=== PATIENT | male | born 2000 | race Caucasian/White ===

== ENCOUNTER 2020-10-30 17:10 | Observation (INO) | payer OTHER ==
[~2020-10-30] VITALS: Ht 172 cm; Wt 100.1 kg
[2020-10-30] MEDS ORDERED: NS IV 1000 ML 1,000 ML IV SCH (17:30)
[2020-10-30] MEDS ORDERED: KETOROLAC 30 MG/ML VIAL IVP ONE (17:30)
[2020-10-30] MEDS ORDERED: ONDANSETRON 4 MG/2 ML (SDV) Z0FRAN IVP ONE (17:30)
--- NOTE | 2020-10-30 17:33 | ED Abdominal Pain ---
General Stated Complaint: ABD PAIN Source of Information: Patient Exam Limitations: No Limitations History of Present Illness Date Seen by Provider: October 30, 2020 Time Seen by Provider: 17:32 Initial Comments To ER with about 24 hours of right lower quadrant abdominal pain. Nausea but no vomiting. No bowel changes. Timing/Duration: 24 Hours Severity/Quality: Moderate, Aching Location: RUQ, RLQ Radiation: No Radiation Activities at Onset: None Associated Symptoms: Denies Symptoms Allergies and Home Medications Allergies Coded Allergies: No Known Drug Allergies (Unverified , 10/30/20) Patient Home Medication List Home Medication List Reviewed: Yes Review of Systems Review of Systems Constitutional: see HPI; No chills, No fever EENTM: No Symptoms Reported Respiratory: No Symptoms Reported Cardiovascular: No Symptoms Reported Gastrointestinal: See HPI, Abdominal Pain; Denies Constipated, Denies Diarrhea; Nausea Genitourinary: No Symptoms Reported Musculoskeletal: no symptoms reported Psychiatric/Neurological: No Symptoms Reported Endocrine: No Symptoms Reported Hematologic/Lymphatic: No Symptoms Reported Physical Exam Vital Signs Vital Signs - First Documented 10/30/20 17:20 Temp 36.7 Pulse 105 Resp 16 B/P (MAP) 174/94 (120) Pulse Ox 97 O2 Delivery Room Air Capillary Refill : Height/Weight/BMI Height: '" Weight: lbs. oz. kg; BMI Method: General Appearance: WD/WN, no apparent distress HEENT: PERRL/EOMI, normal ENT inspection Neck: non-tender, full range of motion Respiratory: no respiratory distress, no accessory muscle use Cardiovascular: no murmur, tachycardia Gastrointestinal: normal bowel sounds, soft, tenderness Extremities: normal range of motion, non-tender Neurologic/Psychiatric: alert, normal mood/affect, oriented x 3 Skin: normal color, warm/dry Progress/Results/Core Measures Results/Orders Lab Results Laboratory Tests Test 10/30/20 17:33 Range/Units White Blood Count 13.7 H 4.3-11.0 10^3/uL Red Blood Count 5.39 4.30-5.52 10^6/uL Hemoglobin 16.0 13.3-17.7 g/dL Hematocrit 46 40-54 % Mean Corpuscular Volume 86 80-99 fL Mean Corpuscular Hemoglobin 30 25-34 pg Mean Corpuscular Hemoglobin Concent 35 32-36 g/dL Red Cell Distribution Width 12.0 10.0-14.5 % Platelet Count 298 130-400 10^3/uL Mean Platelet Volume 8.9 L 9.0-12.2 fL Immature Granulocyte % (Auto) 0 % Neutrophils (%) (Auto) 83 H 42-75 % Lymphocytes (%) (Auto) 9 L 12-44 % Monocytes (%) (Auto) 7 0-12 % Eosinophils (%) (Auto) 0 0-10 % Basophils (%) (Auto) 0 0-10 % Neutrophils # (Auto) 11.3 H 1.8-7.8 10^3/uL Lymphocytes # (Auto) 1.3 1.0-4.0 10^3/uL Monocytes # (Auto) 1.0 0.0-1.0 10^3/uL Eosinophils # (Auto) 0.0 0.0-0.3 10^3/uL Basophils # (Auto) 0.0 0.0-0.1 10^3/uL Immature Granulocyte # (Auto) 0.0 0.0-0.1 10^3/uL Urine Color YELLOW Urine Clarity CLEAR Urine pH 7.0 5-9 Urine Specific [place] 1.025 H 1.016-1.022 Urine Protein NEGATIVE NEGATIVE Urine Glucose (UA) NEGATIVE NEGATIVE Urine Ketones NEGATIVE NEGATIVE Urine Nitrite NEGATIVE NEGATIVE Urine Bilirubin NEGATIVE NEGATIVE Urine Urobilinogen 0.2 < = 1.0 MG/DL Urine Leukocyte Esterase NEGATIVE NEGATIVE Urine RBC (Auto) NEGATIVE NEGATIVE Urine RBC NONE /HPF Urine WBC NONE /HPF Urine Squamous Epithelial Cells NONE /HPF Urine Crystals NONE /LPF Urine Bacteria NEGATIVE /HPF Urine Casts NONE /LPF Urine Mucus NEGATIVE /LPF Urine Culture Indicated NO Sodium Level 139 135-145 MMOL/L Potassium Level 4.0 3.6-5.0 MMOL/L Chloride Level 100 98-107 MMOL/L Carbon Dioxide Level 29 21-32 MMOL/L Anion Gap 10 5-14 MMOL/L Blood Urea Nitrogen 10 7-18 MG/DL Creatinine 1.30 0.60-1.30 MG/DL Estimat Glomerular Filtration Rate > 60 BUN/Creatinine Ratio 8 Glucose Level 103 70-105 MG/DL Calcium Level 10.1 8.5-10.1 MG/DL Corrected Calcium 8.5-10.1 MG/DL Total Bilirubin 0.7 0.1-1.0 MG/DL Aspartate Amino Transf (AST/SGOT) 32 5-34 U/L Alanine Aminotransferase (ALT/SGPT) 47 0-55 U/L Alkaline Phosphatase 64 40-136 U/L C-Reactive Protein High Sensitivity 4.07 H 0.00-0.50 MG/DL Total Protein 8.5 H 6.4-8.2 GM/DL Albumin 5.0 H 3.2-4.5 GM/DL Lipase 27 8-78 U/L My Orders Orders - ARVIND PUTNAM DIGITAL SALES REPRESENTATIVE Cbc With Automated Diff (10/30/20 17:30) Hs C Reactive Protein (10/30/20 17:30) Comprehensive Metabolic Panel (10/30/20 17:30) Lipase (10/30/20 17:30) Ua Culture If Indicated (10/30/20 17:30) Ed Iv/Invasive Line Start (10/30/20 17:30) Ketorolac Injection (Toradol Injection) (10/30/20 17:30) Ondansetron Injection (Zofran Injectio (10/30/20 17:30) Ns Iv 1000 Ml (Sodium Chloride 0.9%) (10/30/20 17:30) Ct Abd/Pelv W (Appendicitis) (10/30/20 18:02) Iohexol Injection (Omnipaque 350 Mg/Ml 1 (10/30/20 18:30) Received Contrast (Hold Metformin- Contr (10/30/20 18:30) Ns (Ivpb) (Sodium Chloride 0.9% Ivpb Bag (10/30/20 18:30) Medications Given in ED Current Medications Medications Dose Ordered Sig/Dalia Route Start Time Stop Time Status Last Admin Dose Admin Ketorolac Tromethamine 15 mg ONCE ONCE IVP 10/30/20 17:30 10/30/20 17:33 DC 10/30/20 17:46 15 MG Ondansetron HCl 4 mg ONCE ONCE IVP 10/30/20 17:30 10/30/20 17:33 DC 10/30/20 17:45 4 MG Vital Signs/I&O 10/30/20 17:20 Temp 36.7 Pulse 105 Resp 16 B/P (MAP) 174/94 (120) Pulse Ox 97 O2 Delivery Room Air Departure Impression Primary Impression: Appendicitis Disposition: 01 HOME, SELF-CARE Condition: Stable Admissions Decision to Admit Reason: Admit from ER (General) Decision to Admit/Date: October 30, 2020 Time/Decision to Admit Time: 18:51 Departure-Patient Inst. Decision time for Depature: 18:51 Referrals: NO,LOCAL PHYSICIAN (PCP/Family) Primary Care Physician ARVIND PUTNAM APRN October 30, 2020 17:33
[2020-10-30 17:42] LABS: BASOPHILS % (AUTO) 0 % (0-10); EOSINOPHILS % (AUTO) 0 % (0-10); HEMATOCRIT 46 % (40-54); LYMPHOCYTES # (AUTO) 1.3 10^3/uL (1.0-4.0); LYMPHOCYTES % (AUTO) 9 % (12-44); MEAN CORPUSCULAR HEMOGLOBIN 30 pg (25-34); MEAN CORPUSCULAR HGB CONC 35 g/dL (32-36); MEAN CORPUSCULAR VOLUME 86 fL (80-99); MEAN PLATELET VOLUME 8.9 fL (9.0-12.2); MONOCYTES % (AUTO) 7 % (0-12); NEUTROPHILS # (AUTO) 11.3 10^3/uL (1.8-7.8); NEUTROPHILS % (AUTO) 83 % (42-75); PLATELET COUNT 298 10^3/uL (130-400); WHITE BLOOD COUNT 13.7 10^3/uL (4.3-11.0)
[2020-10-30 17:50] LABS: CHLORIDE 100 MMOL/L (98-107); SODIUM 139 MMOL/L (135-145)
[2020-10-30 17:51] LABS: CALCIUM 10.1 MG/DL (8.5-10.1)
[2020-10-30 17:53] LABS: BILIRUBIN,URINE NEGATIVE (NEGATIVE); CLARITY,URINE CLEAR; COLOR,URINE YELLOW; GLUCOSE 103 MG/DL (70-105); GLUCOSE, URINE (UA) NEGATIVE (NEGATIVE); KETONES,URINE NEGATIVE (NEGATIVE); LEUKOCYTE ESTERASE ,URINE NEGATIVE (NEGATIVE); NITRITE,URINE NEGATIVE (NEGATIVE); PROTEIN,URINE NEGATIVE (NEGATIVE); TOTAL PROTEIN 8.5 GM/DL (6.4-8.2)
[2020-10-30 17:54] LABS: BILIRUBIN,TOTAL 0.7 MG/DL (0.1-1.0); CARBON DIOXIDE 29 MMOL/L (21-32)
[2020-10-30 17:56] LABS: ALKALINE PHOSPHATASE 64 U/L (40-136); GFR ESTIMATED > 60
[2020-10-30 17:57] LABS: BUN/CREATININE RATIO 8
[2020-10-30 17:59] LABS: ALANINE AMINOTRANSFERASE 47 U/L (0-55)
[2020-10-30 18:00] LABS: LIPASE 27 U/L (8-78)
[2020-10-30 18:07] LABS: BACTERIA,URINE NEGATIVE /HPF
[2020-10-30] MEDS ORDERED: HOLD METFORMIN - RECEIVED CONTRAST 20 ML VIAL IV SCH (18:30)
[2020-10-30] MEDS ORDERED: IOHEXOL 350 MG/ML 100 ML (OMNIPAQUE 350) VIAL IV ONE (18:30)
[2020-10-30] MEDS ORDERED: NS 100 ML (IVPB) BAG IV ONE (18:30)
--- NOTE | 2020-10-30 19:15 | Diagnostic Imaging Report ---
CLINICAL INDICATION: Patient with right lower quadrant pain with nausea x24 hours. Patient with right lower quadrant pain and leukocytosis. EXAM: Axial CT scan of the abdomen and pelvis performed with 100 mL of Omnipaque 350 IV contrast. Sagittal and coronal reformatted images were created. Auto Exposure Controls were utilized during the CT exam to meet ALARA standards for radiation dose reduction. COMPARISON: None. FINDINGS: Visualized lung bases are clear. Bones show no significant abnormality. The liver, spleen, pancreas, gallbladder, and adrenal glands are unremarkable. There is a roughly 6 mm circumscribed cyst involving the midportion of the left kidney. There is enlargement of wall thickening involving the appendix measuring 13 mm in greatest width. There is a small to moderate amount of fat stranding about the right pancreas which extends near the cecum and along the medial upper right pelvic wall region. There is no evidence of intra-abdominal free air or abscess. There is minimal free fluid in the pelvis. The colon, small bowel, and stomach are unremarkable. The extraabdominal and extra-pelvis soft tissue structures are unremarkable. IMPRESSION: There is acute appendicitis with no evidence of rupture or abscess. Results of this report were discussed with Dr. Bey via the telephone on 10/30/2020 at 1908 hours. Dictated by: Dictated on workstation # [id number]
--- NOTE | 2020-10-30 19:28 | Progress Note-Pre Operative ---
Pre-Operative Progress Note H&P Reviewed The H&P was reviewed, patient examined and no changes noted. Date Seen by Provider: October 30, 2020 Time Seen by Provider: 19:30 Date H&P Reviewed: October 30, 2020 Time H&P Reviewed: 19:30 Pre-Operative Diagnosis: acute appendicitis JAIME MATOS MD October 30, 2020 19:28
--- NOTE | 2020-10-30 19:47 | HISTORY AND PHYSICAL ---
DATE OF SERVICE: HISTORY OF PRESENT ILLNESS: The patient is a 20-year-old male who presented to the Emergency Department with a 24-hour history of right lower quadrant abdominal pain. He states that this came on suddenly and persisted. He does not report any nausea, no vomiting as well as no change in bowel habits. He also does not report any fever, no chills. He also does not report having these symptoms before in the past as well. A CT scan was performed, which did show an inflamed appendix; however, no signs of perforation. PAST MEDICAL HISTORY: None. PAST SURGICAL HISTORY: None. ALLERGIES: No known drug allergies. MEDICATIONS: None. SOCIAL HISTORY: Negative smoke, social alcohol. VITAL SIGNS: Temperature 36.7, blood pressure 174/94, pulse 105, respirations 16, pulse ox 97% on room air. REVIEW OF SYSTEMS: A well-nourished male, currently guarded secondary to the abdominal pain. He is not experiencing any shortness of breath, no difficulty breathing. No chest pain, palpitations, diaphoresis. No nausea, vomiting, no diarrhea or constipation. No known red blood per rectum, no dark tarry stools. No fever, chills, no recent inadvertent weight loss. All other review of systems negative. PHYSICAL EXAMINATION: CHEST: Clear. Good breath sounds bilaterally. HEART: Regular, no murmurs. EXTREMITIES: No lower extremity edema, negative Homans sign. HEENT: No scleral icterus. NECK: No cervical lymphadenopathy. ABDOMEN: Soft, nondistended. There is pain at McBurney's point with voluntary guarding, no rebound. No hernias. SKIN: Warm, dry. LABORATORY DATA: WBC 13.7, hemoglobin 16.0, hematocrit 46, platelets 298, BUN 10, creatinine 1.30. ASSESSMENT AND PLAN: A 20-year-old male with a noncomplicated appendicitis. The natural history of appendicitis was explained to the patient including the risks and benefits of surgery and he is in full understanding of this and would like to proceed with a diagnostic laparoscopy as well as laparoscopic appendectomy, which we will schedule. Job ID: [id number] DocumentID: [id number] Dictated Date: 10/30/2020 19:27:29 Home Care Associate Date: 10/30/2020 19:46:14 Dictated By: JAIME MATOS MD
[2020-10-30] MEDS ORDERED: LACTATED RINGERS 1,000 ML IV ONE (20:33)
[2020-10-30] MEDS: LACTATED RINGERS 1,000 ML IV SCH (20:33)
[2020-10-30 20:43] VITALS: BP 134/85
[2020-10-30] MEDS ORDERED: ONDANSETRON 4 MG/2 ML (SDV) Z0FRAN IVP PRN (21:30)
[2020-10-30] MEDS ORDERED: fentaNYL INJ 100 MCG/2 ML AMP IVP PRN (21:30)
[2020-10-30] MEDS: metroNIDAZOLE 500 MG/100 ML IVPB (PRE-MIX) IV SCH (21:52)
[2020-10-30] MEDS ORDERED: cefTRIAXone 1,000 MG/SWFI 10 ML IV PUSH IV SCH ×2 (22:00)
[2020-10-30 23:19] VITALS: BP 121/74
[2020-10-31] VITALS (9 sets, daily range): BP systolic 121–143; BP diastolic 50–83
[2020-10-31] MEDS: LACTATED RINGERS 1,000 ML IV SCH (05:43)
[2020-10-31] MEDS: metroNIDAZOLE 500 MG/100 ML IVPB (PRE-MIX) IV SCH (09:00)
[2020-10-31] MEDS ORDERED: LIDOCAINE/EPI 1%-1:100,000 (XYLOCAINE) 20ML ONE (09:27)
[2020-10-31] MEDS ORDERED: MIDAZOLAM 2 MG/2 ML (VERSED) VIAL ONE (09:32)
[2020-10-31] MEDS ORDERED: fentaNYL INJ 100 MCG/2 ML AMP ONE ×2 (09:32→10:54)
--- NOTE | 2020-10-31 09:47 | Progress Note ---
Standard Progress Note Progress Notes/Assess & Plan Date Seen by a Provider: October 31, 2020 Time Seen by a Provider: 09:10 Progress/Assessment & Plan Patient seen with Dr. Martínez. Patient denies any pain at this time. No fever/chills. Questions answered. Surgery and after care explained to patient. Will proceed with laparoscopic appendectomy. Final Diagnosis Acute Appendicitis Diagnosis/Problems Diagnosis/Problems (1) Appendicitis Status: Acute Qualifiers: Qualified Codes: K35.80 - Unspecified acute appendicitis SRINIVAS ZAVALA MANAGER CREATIVE SERVICES October 31, 2020 09:47
[2020-10-31] MEDS: LACTATED RINGERS 1,000 ML IV PRN ×2 (09:58→10:45)
[2020-10-31] MEDS ORDERED: ceFAZolin 2 GM IV Premixed 50 ML ONE (10:10)
[2020-10-31] MEDS ORDERED: MEPERIDINE (DEMEROL) INJ 50 MG/ML IVP ONE (10:15)
[2020-10-31] MEDS ORDERED: ONDANSETRON 4 MG/2 ML (SDV) Z0FRAN IVP PRN (10:15)
[2020-10-31] MEDS ORDERED: HYDROmorphone 2 MG/ML VIAL (DILAUDID) IV ONE (10:15)
[2020-10-31] MEDS ORDERED: morphine INJ 10 MG/ML 1ML (SYR OR VIAL) IVP ONE (10:15)
[2020-10-31] MEDS ORDERED: HYDR-3817 PO ×2 (10:23)
--- NOTE | 2020-10-31 10:26 | Discharge Inst-Surgical ---
D/C Lap Instructions-KIDO Reconcile Patient Problems Problems Reviewed?: Yes New, Converted, or Re-Newed RX: RX on Chart Follow Up Appt with primary care physician as needed due to patient does not live close to here Call our office with any questions or concerns at [phone] Activity as tolerated No driving for 24 hours No driving while on pain medications Incentive Spirometry use every 2 hours while awake Regular Diet Symptoms to Report: Fever over 101 degree F, Nausea/Vomiting Infection Signs and Symptoms to report: Increased redness, Foul odor of wound, Increased drainage Bathing instructions: May shower Operative Area Clean/Dry; Keep incision clean/dry If any problems/questions: Contact your physician or go to Emergency Room SRINIVAS ZAVALA APRN October 31, 2020 10:26
[2020-10-31] MEDS ORDERED: proPOfol 200 MG/20 ML (DIPRIVAN) VIAL IV ONE ×2 (10:52→10:53)
[2020-10-31] MEDS ORDERED: ONDANSETRON 4 MG/2 ML (SDV) Z0FRAN ONE (10:52)
[2020-10-31] MEDS ORDERED: LIDOCAINE PF 2% 5 ML (XYLOCAINE) VIAL ONE (10:52)
[2020-10-31] MEDS ORDERED: SUCCINYLCHOLINE INJ 100 MG/5 ML SYR/VIAL ONE (10:52)
[2020-10-31] MEDS ORDERED: ROCURONIUM 10 MG/ML 5 ML SYRINGE IV ONE (10:52)
[2020-10-31] MEDS ORDERED: GLYCOPYRROLATE 0.2 MG/ML (ROBINUL) 2 ML VIAL ONE (10:53)
[2020-10-31] MEDS ORDERED: SEVOFLURANE (ULTANE) 15 ML INHAL SOLN ONE ×2 (10:53→10:59)
[2020-10-31] MEDS ORDERED: NEOSTIGMINE 3 MG/3 ML VIAL ONE (10:53)
--- NOTE | 2020-10-31 11:03 | Progress Note-Post Operative ---
Post-Operative Progess Note Surgeon (s)/Mix Crusher Operator (s) Surgeon JAIME MATOS MD Mix Crusher Operator: mirta lindsey WATERSHED COORDINATOR Pre-Operative Diagnosis acute appendicitis Post-Operative Diagnosis same Procedure & Operative Findings Date of Procedure 10/31/20 Procedure Performed/Findings laparoscopic appendectomy Anesthesia Type get Estimated Blood Loss Estimated blood loss (mL): minimal Specimens/Packing Specimens Removed appendix JAIME MATOS MD October 31, 2020 11:03
--- NOTE | 2020-10-31 16:30 | OPERATIVE REPORT ---
DATE OF SERVICE: 10/31/2020 PREOPERATIVE DIAGNOSIS: Acute appendicitis. POSTOPERATIVE DIAGNOSIS: Acute appendicitis. PROCEDURE: Laparoscopic appendectomy. SURGEON: Jaime Matos MD. MEDIA STRATEGIST: Zaid Araya APRN. ANESTHESIA: General endotracheal. ESTIMATED BLOOD LOSS: Minimal. FINDINGS: Inflamed appendix, no perforation. DISPOSITION: The patient tolerated the procedure well. INDICATIONS: The patient is a 20-year-old male who presented to the Emergency Department with a 24-hour history of right lower abdominal quadrant pain that came on all of a sudden and persisted. He did not report any nausea, no vomiting as well as no change in bowel habits. He also did not report any fever, no chills. A CT scan was performed, which showed an inflamed appendix consistent with appendicitis; however, no signs of perforation or any complications. DESCRIPTION OF PROCEDURE: The patient was brought to the operating room, laid supine on the table. After adequate IV pain and sedative medications and general endotracheal intubation, the abdomen was prepped and draped in standard surgical fashion. A 0.5% Marcaine with epinephrine was then used to anesthetize overlying skin in the left upper abdominal quadrant and a transverse skin incision made using a 15 blade. An #0 silk suture was applied to the medial aspect incision for retraction and a Veress needle inserted with a low opening pressure of #0 mmHg. The abdomen was insufflated to 15 mmHg pressure. The Veress needle removed and a 5 mm XL trocar placed followed by a 5 mm 45-degree angle laparoscope visualizing the peritoneal cavity. A 4-quadrant abdominal exploration was performed. There was an inflamed appendix, no perforation, remainder of the colon and small bowel appeared normal. Under direct visualization, we then proceeded to place a supraumbilical 10 mm port after the skin and peritoneal lining were anesthetized using 0.5% Marcaine with epinephrine and a transverse skin incision made using a 15 blade. In a similar fashion, a suprapubic 5 mm port was placed. The patient was then placed in a Trendelenburg position as well as plane right side up, left side down. We then created a window between the mesoappendix and the base of the mesoappendix using a [place] dissector. The mesoappendix was then stapled and transected with a MARY 45 mm stapler with a 2.0 mm thickness load. The appendix was then stapled and transected at the cecal base with the same stapler with a 2.5 mm thickness reload with visualization of good hemostasis. The appendix was then removed through the 10 mm port site using an EndoCatch bag. The 10 mm port site fascia and peritoneum were then closed under direct visualization using a Prince-Izaiah device and #0 Vicryl suture. The abdomen was desufflated and remaining ports removed. All skin incisions were closed using 4-0 Monocryl running subcuticular sutures. Wounds were then cleaned and covered with Dermabond. The patient tolerated the procedure well. We will start IV normal pain medication as well as a clear liquid diet. Once he is tolerating clears, has good pain control with oral pain medications and ambulating well, we will discharge him home. Job ID: [id number] DocumentID: [id number] Dictated Date: 10/31/2020 11:11:50 Assistant Professor Date: 10/31/2020 16:29:32 Dictated By: JAIME MATOS MD
[2020-11-01] MEDS ORDERED: TMSL.4C PO (03:31)
[2020-11-01] MEDS ORDERED: CEPH500T PO (03:31)
== END 2020-10-31 14:16 | disposition home or self-care (01) ==
LOC: ER 17:12 → 4TH 19:19 → INTOOBSV 19:19
PROVIDERS: ADMIT Surgery; ATTEND Surgery
DX: K35.80 Unspecified acute appendicitis (principal); J45.990 Exercise induced bronchospasm; K21.9 Gastro-esophageal reflux disease without esophagitis; E66.9 Obesity, unspecified; Z68.33 Body mass index [BMI] 33.0-33.9, adult; Z20.822 Contact with and (suspected) exposure to COVID-19
CPT/HCPCS: 44970; 74177; 80053; 81000; 83690; 85025; 86141; 87081; 99284; U0002; 36415; 87635

== ENCOUNTER 2020-11-01 01:47 | Emergency (ER) | payer OTHER ==
[~2020-11-01] VITALS: Ht 172.7 cm; Wt 99.7 kg
[~2020-11-01 01:47] MED LIST: HYDR-3817 PO
[2020-11-01] MEDS ORDERED: LIDOCAINE UROJET 2% GEL 10 ML PKG ONE (02:17)
[2020-11-01 02:51] LABS: BILIRUBIN,URINE NEGATIVE (NEGATIVE); CLARITY,URINE CLEAR; COLOR,URINE YELLOW; GLUCOSE, URINE (UA) 1+ (NEGATIVE); KETONES,URINE NEGATIVE (NEGATIVE); LEUKOCYTE ESTERASE ,URINE NEGATIVE (NEGATIVE); NITRITE,URINE NEGATIVE (NEGATIVE); PROTEIN,URINE NEGATIVE (NEGATIVE)
[2020-11-01 02:59] LABS: BACTERIA,URINE NEGATIVE /HPF; WBC,URINE 0-2 /HPF
[2020-11-01] MEDS ORDERED: TAMSULOSIN 0.4 MG (FLOMAX) CAP PO STA (03:22)
--- NOTE | 2020-11-01 03:29 | ED GU-Male ---
General Chief Complaint: - Urinary Stated Complaint: POST OP PAINFUL URINATION Source: patient Exam Limitations: no limitations History of Present Illness Date Seen by Provider: November 01, 2020 Time Seen by Provider: 02:27 Initial Comments Patient presents ER by private conveyance with his significant other chief complaint that earlier in the day on Monday he had a appendectomy done by Dr. Martínez was passing urine but having some burning in the urethra. He has not passed gas or bowel movements yet. He was sent home and up until recently was able to pass urine. He says he is having quite a bit of pain and pressure. Nursing staff did a bedside bladder scan revealing over 400 cc of urine. Sumner catheter was placed. Patient does not have a history of urethral discharge, dysuria or other urinary symptoms. Allergies and Home Medications Allergies Coded Allergies: No Known Drug Allergies (Unverified , 10/30/20) Home Medications Cephalexin 500 Mg Tablet, 500 MG PO BID Prescribed by: MICHAEL WHYTE on 11/01/20 0331 Hydrocodone/Acetaminophen 1 Each Tablet, 1 EACH PO Q4H PRN for PAIN-BREAKTHROUGH Prescribed by: SRINIVAS ZAVALA on 10/31/20 1023 Tamsulosin HCl 0.4 Mg Cap, 0.4 MG PO HS Prescribed by: MICHAEL WHYTE on 11/01/20 0331 Patient Home Medication List Home Medication List Reviewed: Yes Review of Systems Review of Systems Constitutional: No chills, No fever EENTM: No ear discharge, No ear pain Respiratory: No cough, No short of breath Cardiovascular: No chest pain, No palpitations Gastrointestinal: No abdominal pain, No nausea, No vomiting Genitourinary: denies discharge, denies dysuria Musculoskeletal: No back pain, No joint pain Past [id number] Hx Patient Social History Alcohol Use: Denies Use Smoking Status: Never a Smoker Recent Hopitalizations: No Seasonal Allergies Seasonal Allergies: No Past Medical History Surgeries: No Respiratory: Yes Asthma Currently Using CPAP: No Currently Using BIPAP: No Cardiac: No Neurological: No Genitourinary: No Gastrointestinal: No Musculoskeletal: No Endocrine: No HEENT: No Cancer: No Psychosocial: No Integumentary: No Physical Exam Vital Signs Capillary Refill : Height, Weight, BMI Height: '" Weight: lbs. oz. kg; 33.83 BMI Method: General Appearance: WD/WN, mild distress HEENT: PERRL/EOMI, pharynx normal Neck: full range of motion, normal inspection Cardiovascular: normal peripheral pulses, regular rate, rhythm, no edema Respiratory: lungs clear, normal breath sounds, no respiratory distress, no accessory muscle use Gastrointestinal: soft, tenderness (Around the clean dry intact surgical wounds) Neurologic/Psychiatric: alert, normal mood/affect Progress/Results/Core Measures Suspected Sepsis SIRS Temperature: Pulse: Respiratory Rate: Blood Pressure / Mean: Results/Orders Lab Results Laboratory Tests Test 11/01/20 02:45 Range/Units Urine Color YELLOW Urine Clarity CLEAR Urine pH 7.0 5-9 Urine Specific [place] 1.020 1.016-1.022 Urine Protein NEGATIVE NEGATIVE Urine Glucose (UA) 1+ H NEGATIVE Urine Ketones NEGATIVE NEGATIVE Urine Nitrite NEGATIVE NEGATIVE Urine Bilirubin NEGATIVE NEGATIVE Urine Urobilinogen 0.2 < = 1.0 MG/DL Urine Leukocyte Esterase NEGATIVE NEGATIVE Urine RBC (Auto) NEGATIVE NEGATIVE Urine RBC NONE /HPF Urine WBC 0-2 /HPF Urine Squamous Epithelial Cells NONE /HPF Urine Renal Epithelial Cells NONE /HPF Urine Crystals NONE /LPF Urine Bacteria NEGATIVE /HPF Urine Casts NONE /LPF Urine Mucus NEGATIVE /LPF Urine Culture Indicated NO My Orders Orders - MICHAEL WHYTE Ua Culture If Indicated (11/01/20 02:12) Lidocaine 2% (Urojet) (Xylocaine Urojet) (11/01/20 02:17) Catheter(Urinary) Insert & Ass 03,15 (11/01/20 02:33) Urine Culture (11/01/20 03:22) Tamsulosin Capsule (Flomax Capsule) (11/01/20 03:22) Medications Given in ED Current Medications Medications Dose Ordered Sig/Dalia Route Start Time Stop Time Status Last Admin Dose Admin Lidocaine HCl 10 ml STK-MED ONCE .ROUTE 11/01/20 02:17 11/01/20 02:27 DC 11/01/20 02:32 10 ML Vital Signs/I&O Capillary Refill : Progress Note : Time: 03:25 Progress Note Sumner catheter has decompressed his bladder. Put him on some Flomax, Keflex and follow-up outpatient with Dr. Garcia. Departure Impression Primary Impression: Postoperative urinary retention Disposition: 01 HOME, SELF-CARE Condition: Stable Departure-Patient Inst. Decision time for Depature: 03:26 Referrals: JAIME MARTÍNEZ MD NO,LOCAL PHYSICIAN (PCP) Primary Care Physician RAFAEL GARCIA MD Patient Instructions: Urinary Retention (DC), How to Care for Your Sumenr Catheter, Male Add. Discharge Instructions: Keep the skin clean with regular soap and water only. Monday morning call Dr. Garcia, urologist and request follow-up appointment. Flomax 1 capsule every night until directed otherwise by the urologist. Zofran 1 tablet every 6 hours under the tongue as necessary for nausea or vomiting. Walk around the house frequently and chew gum as this will help waken your bowels sooner. Keep your follow-up appointment with the surgeon. Return to the ER promptly if you are having intractable pain nausea or other worrisome symptoms. All discharge instructions reviewed with patient and/or family. Voiced understanding. Scripts Cephalexin (Cephalexin) 500 Mg Tablet 500 MG PO BID for 7 Days, #14 TAB 0 Refills Prov: MICHAEL WHYTE 11/01/20 Tamsulosin HCl (Flomax) 0.4 Mg Cap 0.4 MG PO HS for 14 Days, #14 CAP 0 Refills Prov: MICHAEL WHYTE 11/01/20 Copy Copies To 1: JAIME MARTÍNEZ MD; RAFAEL GARCIA MD, TITUS J November 01, 2020 03:29
[2020-11-01] MEDS ORDERED: TMSL.4C PO (03:31)
[2020-11-01] MEDS ORDERED: CEPH500T PO (03:31)
[2020-11-01 03:56] VITALS: BP 146/78
== END 2020-11-01 03:56 | disposition home or self-care (01) ==
LOC: EDUNIT# 01:47 → ER 01:50
DX: R33.8 Other retention of urine (principal); J45.909 Unspecified asthma, uncomplicated
CPT/HCPCS: 81000; 87088; 99283

== ENCOUNTER 2021-11-04 22:19 | Emergency (ER) | payer OTHER ==
[~2021-11-04] VITALS: Ht 170.1 cm; Wt 100.0 kg
[~2021-11-04 22:19] MED LIST changes: +CEPH500T PO; +TMSL.4C PO
--- NOTE | 2021-11-04 22:56 | ED Chest Pain ---
General Chief Complaint: Chest Wall Stated Complaint: SOB AND RIB AND BACK PAIN Nursing Triage Note: PT ARRIVAL TO ER WITH COMPLAINT OF RIGHT SIDED RIB PAIN AND SOA. PT STATES THAT IT STARTED THIS AM. PT STATES THAT IT HURTS TO TAKE DEEP BREATH. PT STATES THAT HE WAS SEEN IN URGENT CARE THIS AFTERNOON AND THEY BELIEVED THE LINING OF HIS LUNGS WERE INFECTED PER PATIENT AND HE WAS STARTED ON Z-PACK. PT STATES THAT SINCE TAKING THE MEDICATION ITS ONLY GOTTEN WORSE. PAIN RATED AT A 7/10 AND DESCRIBED SHARP. Source: patient Exam Limitations: no limitations History of Present Illness Date Seen by Provider: November 04, 2021 Time Seen by Provider: 22:42 Initial Comments Patient is a healthy 21-year-old male who presents to the emergency department today with a chief complaint of right-sided lower rib and back pain with painful deep breathing. He states he woke up with the symptoms this morning suddenly. He is never had anything like this. He does endorse a little hemoptysis throughout the morning until about 3:00 in the afternoon. He states he feels a little short of breath and specifically states it is uncomfortable to take deep breaths. He denies fevers, chills, productive cough. No sinus infections, sore throat. He occasionally vapes and smokes but takes no prescribed daily medications. No family history of early coronary artery disease. No recent prolonged immobility/surgery/travel. No history of pulmonary embolism or DVTs in himself or family. Patient states he went to urgent care in [place] today, had a chest x-ray that he states was relayed to him as "normal". They gave him a Z-Julio which she started this evening. He did take 2 ibuprofen earlier in the day without any relief of symptoms. He states he was trying to lay down to sleep tonight and laying down made his discomfort worse. Patient states that he did a lot of work outside, heavy exertion and yesterday. 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 Did a lot of lawnmowing yesterday. He states he was exposed to quite a bit of smoke. All other review of systems reviewed and negative except as stated. Timing/Duration: 1 day Severity/Quality: moderate, sharp Location: other (right lower ribs and back) Activities at Onset: none Prior CP/Workup: no prior chest pain, no prior cardiac workup ASA po PRESS HELPER: No NTG SL PRESS HELPER: No Associated Symptoms: shortness of breath Allergies and Home Medications Allergies Coded Allergies: No Known Drug Allergies (Unverified , 10/30/20) Patient Home Medication List Home Medication List Reviewed: Yes Cephalexin (Cephalexin) 500 Mg Tablet, 500 MG PO BID Prescribed by: MICHAEL WHYTE on 11/01/20 0331 Hydrocodone/Acetaminophen (Hydrocodone-Acetamin 7.5-325) 1 Each Tablet, 1 EACH PO Q4H PRN for PAIN-BREAKTHROUGH Prescribed by: SRINIVAS ZAVALA on 10/31/20 1023 Tamsulosin HCl (Flomax) 0.4 Mg Cap, 0.4 MG PO HS Prescribed by: MICHAEL WHYTE on 11/01/20 0331 Review of Systems Review of Systems Constitutional: see HPI EENTM: No Symptoms Reported Respiratory: SOA at Rest, Other (pleuritic type chest pain; hemoptysis) Cardiovascular: Chest Pain Gastrointestinal: No Symptoms Reported Genitourinary: No Symptoms Reported Skin: no symptoms reported Psychiatric/Neurological: No Symptoms Reported All Other Systems Reviewed Negative Unless Noted: Yes Past Wewbblk-Bhupdc-Azlvhp Hx Patient Social History Tobacco Use?: Yes Tobacco type used: Cigarettes Smoking Status: Current Everyday Smoker Use of E-Cig and/or Vaping dev: No Substance use?: No Alcohol Use?: Yes Alcohol type: Beer, Hard Liquor, Wine Alcohol Frequency: Couple times a week Pt feels they are or have been: No Immunizations Up To Date Influenza Vaccine Up-to-Date: No; Not Current Seasonal Allergies Seasonal Allergies: No Past Medical History Surgeries: No Respiratory: Yes Asthma Currently Using CPAP: No Currently Using BIPAP: No Cardiac: No Neurological: No Genitourinary: No Gastrointestinal: No Musculoskeletal: No Endocrine: No HEENT: No Cancer: No Psychosocial: No Integumentary: No Physical Exam Vital Signs Vital Signs - First Documented 11/04/21 22:38 Temp 36.5 Pulse 91 Resp 20 B/P (MAP) 151/91 (111) Pulse Ox 99 O2 Delivery Room Air Capillary Refill : Less Than 3 Seconds Height, Weight, BMI Height: '" Weight: lbs. oz. kg; 34.00 BMI Method: General Appearance: No Apparent Distress, WD/WN HEENT: Pharynx Normal, Moist Mucous Membranes Neck: Normal Inspection, Non Tender, Supple Respiratory: Lungs Clear, Other (slight tenderness to palpation posterior ribs right lower - about ribs 7-10; no overlying rashes. no crepitance) Cardiovascular: Regular Rate, Rhythm (80-90bpm), Normal Peripheral Pulses Gastrointestinal: Normal Bowel Sounds, Non Tender, Soft Extremity: Normal Capillary Refill, Normal Inspection, Normal Range of Motion Neurologic/Psychiatric: Alert, Oriented x3, No Motor/Sensory Deficits, Normal Mood/Affect Skin: Normal Color, Warm/Dry Progress/Results/Core Measures Results/Orders My Orders Orders - GABY JOHNSON MD Ketorolac Injection (Toradol Injection) (11/04/21 23:00) Orphenadrine Inj (Ed Only) (Norflex Inje (11/04/21 23:00) Medications Given in ED Current Medications Medications Dose Ordered Sig/Dalia Route Start Time Stop Time Status Last Admin Dose Admin Ketorolac Tromethamine 30 mg ONCE ONCE IM 11/04/21 23:00 11/04/21 23:01 DC 11/04/21 23:08 30 MG Orphenadrine Citrate 60 mg ONCE ONCE IM 11/04/21 23:00 11/04/21 23:01 DC 11/04/21 23:07 60 MG Vital Signs/I&O 11/04/21 11/04/21 22:38 22:38 Temp 36.5 Pulse 91 Resp 20 B/P (MAP) 151/91 (111) Pulse Ox 99 O2 Delivery Room Air Room Air Blood Pressure Mean: 111 Progress Progress Note : Time: 23:29 Progress Note Patient feels much better after IM Toradol and Norflex. Counseled on medication usage at home, [id number] Aleve or ibuprofen. Return precautions given. He is grateful, verbalized understanding of the discharge instructions and plan of care. All questions are sought and answered. Departure Impression Primary Impression: Pleuritic chest pain Disposition: 01 HOME, SELF-CARE Condition: Improved Departure-Patient Inst. Decision time for Depature: 22:55 Referrals: NO,LOCAL PHYSICIAN (PCP/Family) Primary Care Physician Patient Instructions: Pleuritic Chest Pain ED Add. Discharge Instructions: Drink plenty of fluids to stay well-hydrated. Take [id number] ibuprofen (Advil and Motrin are the same thing), 3 tablets which is 600 mg every 6 hours as needed with food for pain. *OR* Alleve is a different medication (each 250mg) you can take 2 every 12 hours with food for pain. (do not take Alleve and ibuprofen at the same time). Try and take deep breaths as often as possible to keep your lungs well aerated Return to the emergency department if you experience worsening shortness of breath, fever over 101, worsening pain or any other emergent, concerning symptoms. GABY JOHNSON MD November 04, 2021 22:56
[2021-11-04] MEDS ORDERED: ORPHENADRINE 60 MG/2 ML (NORFLEX) AMP (ED ONLY) IM ONE (23:00)
[2021-11-04] MEDS ORDERED: KETOROLAC 30 MG/ML VIAL IM ONE (23:00)
[2021-11-04 23:45] VITALS: BP 133/88
== END 2021-11-04 23:45 | disposition home or self-care (01) ==
LOC: EDUNIT# 22:19 → ER 22:23
DX: R07.81 Pleurodynia (principal); F17.210 Nicotine dependence, cigarettes, uncomplicated
CPT/HCPCS: 99284